=== PATIENT | male | born 1975 | race Caucasian/White ===

== ENCOUNTER 2017-04-15 17:00 | Inpatient (IN) | payer MEDICAID ==
[~2017-04-15] VITALS: Ht 175.3 cm; Wt 81.6 kg
--- NOTE | 2017-04-15 18:08 | Emergency Room Report ---
History of Present Illness General Chief Complaint: Overdose Source: Patient, EMS Present Illness HPI This patient is brought in by EMS. He reports that he took about 6 tablets of Seroquel. He admits that he was trying to commit suicide. He states that he also has been drinking alcohol and would like to detox. He has no other complaints. Allergies: Coded Allergies: No Known Allergies (Unverified , 04/15/17) Patient History Past Medical History: see triage record, psych hx - Bipolar Social History: Reports: alcohol use, Denies: drug use, smoking Reviewed Nursing Documentation: PMH: Agreed, PSxH: Agreed Nursing Documentation-PMH Hx Gastrointestinal Problems: Yes - bowl surgery History Of Psychiatric Problem: Yes Review of Systems All Other Systems: negative except mentioned in HPI Physical Exam Vital Signs Date Time Temp Pulse Resp B/P Pulse Ox O2 Delivery O2 Flow Rate FiO2 04/15/17 16:57 98.1 76 20 120/75 98 Room Air Sp02 EP Interpretation: reviewed, normal General Appearance: no apparent distress, alert, GCS 15, non-toxic, other - + smell of ETOH Head: normocephalic, atraumatic Eyes: bilateral eye PERRL, bilateral eye normal inspection ENT: hearing grossly normal, normal pharynx, no angioedema, normal voice Neck: full range of motion, supple/symm/no masses Respiratory: chest non-tender, lungs clear, normal breath sounds, speaking full sentences Cardiovascular #1: regular rate, rhythm, no edema Gastrointestinal: normal bowel sounds, non tender, soft, non-distended, no guarding, no rebound Rectal: deferred Musculoskeletal: back normal, normal range of motion, non-tender Neurologic: alert, responsive, motor strength/tone normal, sensory intact, speech normal Psychiatric: memory normal, other - Suicidal ideation Skin: normal color, no rash, warm/dry, well hydrated Medical Decision Making Diagnostic Impression: Primary Impression: Suicide attempt Additional Impressions: Alcohol abuse Deliberate medication overdose ER Course Patient presents for a deliberate medication overdose. He states he took about 6 cervical. He states that he was attempting to end his life. He states he also has a long history of alcohol abuse. He would like to undergo detoxification. He has no other complaints. Labs Test 04/15/17 17:35 04/15/17 18:00 White Blood Count 4.9 K/UL (4.8-10.8) Red Blood Count 4.54 M/UL (4.70-6.10) Hemoglobin 15.2 G/DL (14.2-18.0) Hematocrit 43.1 % (42.0-52.0) Mean Corpuscular Volume 95 FL (80-99) Mean Corpuscular Hemoglobin 33.5 PG (27.0-31.0) Mean Corpuscular Hemoglobin Concent 35.2 G/DL (32.0-36.0) Red Cell Distribution Width 14.3 % (11.6-14.8) Platelet Count 249 K/UL (150-450) Mean Platelet Volume 5.4 FL (6.5-10.1) Neutrophils (%) (Auto) % (45.0-75.0) Lymphocytes (%) (Auto) % (20.0-45.0) Monocytes (%) (Auto) % (1.0-10.0) Eosinophils (%) (Auto) % (0.0-3.0) Basophils (%) (Auto) % (0.0-2.0) Differential Total Cells Counted 100 Neutrophils % (Manual) 41 % (45-75) Lymphocytes % (Manual) 51 % (20-45) Monocytes % (Manual) 4 % (1-10) Eosinophils % (Manual) 4 % (0-3) Basophils % (Manual) 0 % (0-2) Band Neutrophils 0 % (0-8) Platelet Estimate Adequate Platelet Morphology Normal Red Blood Cell Morphology Normal Sodium Level 143 mEQ/L (135-145) Potassium Level 3.9 mEQ/L (3.4-4.9) Chloride Level 105 mEQ/L (98-107) Carbon Dioxide Level 25 mEQ/L (20-30) Anion Gap 13 (5-15) Blood Urea Nitrogen 8 mg/dL (7-23) Creatinine 0.8 mg/dL (0.7-1.2) Estimat Glomerular Filtration Rate > 60 mL/min (>60) Glucose Level 146 mg/dL (74-106) Calcium Level 8.1 mg/dL (8.6-10.2) Total Bilirubin 0.5 mg/dL (0.0-1.2) Aspartate Amino Transf (AST/SGOT) 32 U/L (5-40) Alanine Aminotransferase (ALT/SGPT) 16 U/L (3-41) Alkaline Phosphatase 144 U/L (40-129) Total Protein 6.3 g/dL (6.6-8.7) Albumin 3.9 g/dL (3.5-5.2) Globulin 2.4 g/dL Albumin/Globulin Ratio 1.6 (1.0-2.7) Thyroid Stimulating Hormone (TSH) 4.200 uIU/mL (0.300-4.500) Salicylates Level < 1 mg/dL (10-30) Acetaminophen Level < 10 ug/mL (10-30) Serum Alcohol 459 mg/dL Urine Color Pale yellow Urine Appearance Clear Urine pH 7 (4.5-8.0) Urine Specific [place] 1.005 (1.005-1.035) Urine Protein Negative (NEGATIVE) Urine Glucose (UA) Negative (NEGATIVE) Urine Ketones Negative (NEGATIVE) Urine Occult Blood Negative (NEGATIVE) Urine Nitrite Negative (NEGATIVE) Urine Bilirubin Negative (NEGATIVE) Urine Urobilinogen 1 MG/DL (0.0-1.0) Urine Leukocyte Esterase Negative (NEGATIVE) Urine Opiates Screen Negative (NEGATIVE) Urine Barbiturates Screen Negative (NEGATIVE) Phencyclidine (PCP) Screen Negative (NEGATIVE) Urine Amphetamines Screen Negative (NEGATIVE) Urine Benzodiazepines Screen Negative (NEGATIVE) Urine Cocaine Screen Negative (NEGATIVE) Urine Marijuana (THC) Screen Negative (NEGATIVE) EKG Diagnostic Results Rate: normal Rhythm: NSR ST Segments: no acute changes Rhythm Strip Diag. Results EP Interpretation: yes Rate: 90's Rhythm: NSR, no PVC's, no ectopy Last Vital Signs Date Time Temp Pulse Resp B/P Pulse Ox O2 Delivery O2 Flow Rate FiO2 04/15/17 16:57 98.1 76 20 120/75 98 Room Air Disposition: ADMITTED INPATIENT Condition: Stable Referrals: NOT CHOSEN KRISTAL/,REFERRING (PCP) RAQUEL ALMENDAREZ D.O. Apr 15, 2017 18:08
[2017-04-15 18:12] VITALS: BP 113/74
[2017-04-15 18:21] LABS: APPEARANCE,URINE CLEAR; KETONES,URINE NEGATIVE (NEGATIVE); LEUKOCYTE ESTERASE ,URINE NEGATIVE (NEGATIVE); NITRITE,URINE NEGATIVE (NEGATIVE); PH,URINE 7 (4.5-8.0); PROTEIN,URINE NEGATIVE (NEGATIVE); UROBILINOGEN,URINE 1 MG/DL (0.0-1.0)
[2017-04-15 18:21] LABS: MEAN CORPUSCULAR HEMOGLOBIN 33.5 PG (27.0-31.0); MEAN CORPUSCULAR HGB CONC 35.2 G/DL (32.0-36.0); MEAN CORPUSCULAR VOLUME 95 FL (80-99); MEAN PLATELET VOLUME 5.4 FL (6.5-10.1); PLATELET COUNT 249 K/UL (150-450); RED BLOOD COUNT 4.54 M/UL (4.70-6.10); RED CELL DISTRIBUTION WIDTH 14.3 % (11.6-14.8); WHITE BLOOD COUNT 4.9 K/UL (4.8-10.8)
[2017-04-15 18:33] LABS: ACETAMINOPHEN < 10 ug/mL (10-30); ALANINE AMINOTRANSFERASE 16 U/L (3-41); ALBUMIN/GLOBULIN RATIO 1.6 (1.0-2.7); ANION GAP 13 (5-15); ASPARTATE AMINO TRANSFERASE 32 U/L (5-40); CALCIUM 8.1 mg/dL (8.6-10.2); CARBON DIOXIDE 25 mEQ/L (20-30); CHLORIDE 105 mEQ/L (98-107); CREATININE 0.8 mg/dL (0.7-1.2); GLOMERULAR FILTRATION RATE > 60 mL/min (>60); HEMOLYSIS 9; POTASSIUM 3.9 mEQ/L (3.4-4.9); SODIUM 143 mEQ/L (135-145); TOTAL PROTEIN 6.3 g/dL (6.6-8.7)
[2017-04-15 18:50] LABS: ALCOHOL 459 mg/dL
[2017-04-15 19:33] LABS: EOSINOPHILS % (MANUAL) 4 % (0-3); LYMPHOCYTES % (MANUAL) 51 % (20-45); NEUTROPHILS % (MANUAL) 41 % (45-75); TOTAL CELLS COUNTED 100
[2017-04-15 19:34] LABS: BAND NEUTROPHILS % (MANUAL) 0 % (0-8); BASOPHILS % (MANUAL) 0 % (0-2); PLATELET ESTIMATE ADEQUATE; PLATELET MORPHOLOGY NORMAL
[2017-04-15 20:20] VITALS: BP 119/72
[2017-04-15] MEDS ORDERED: PROZAC10 MG ORAL (20:46)
[2017-04-15] MEDS ORDERED: LATUDA20 MG PO (20:46)
[2017-04-15 21:40] VITALS: BP 126/76
[2017-04-15] MEDS ORDERED: LATUDA40 MG PO (21:50)
[2017-04-15] MEDS ORDERED: VISTARIL50 MG ORAL (21:50)
[2017-04-15] MEDS ORDERED: PROZAC40 MG ORAL (21:50)
[2017-04-15] MEDS ORDERED: SEROQUEL100 MG ORAL (21:50)
[2017-04-15] MEDS: Morphine Sulfate 2mg/ml Inj IVP PRN (22:47)
[2017-04-16] VITALS (7 sets, daily range): BP systolic 118–149; BP diastolic 70–89
[2017-04-16] MEDS: Morphine Sulfate 2mg/ml Inj IVP PRN ×5 (01:59→20:08)
[2017-04-16 07:35] LABS: BASOPHILS % (AUTO) 1.1 % (0.0-2.0); EOSINOPHILS % (AUTO) 2.2 % (0.0-3.0); LYMPHOCYTES % (AUTO) 43.8 % (20.0-45.0); MEAN CORPUSCULAR HEMOGLOBIN 32.6 PG (27.0-31.0); MEAN CORPUSCULAR HGB CONC 33.9 G/DL (32.0-36.0); MEAN CORPUSCULAR VOLUME 96 FL (80-99); MEAN PLATELET VOLUME 5.3 FL (6.5-10.1); MONOCYTES % (AUTO) 6.2 % (1.0-10.0); NEUTROPHILS % (AUTO) 46.7 % (45.0-75.0); PLATELET COUNT 262 K/UL (150-450); RED BLOOD COUNT 4.59 M/UL (4.70-6.10); RED CELL DISTRIBUTION WIDTH 13.8 % (11.6-14.8); WHITE BLOOD COUNT 5.6 K/UL (4.8-10.8)
[2017-04-16 08:03] LABS: ANION GAP 13 (5-15); CALCIUM 8.1 mg/dL (8.6-10.2); CARBON DIOXIDE 26 mEQ/L (20-30); CHLORIDE 101 mEQ/L (98-107); CREATININE 0.8 mg/dL (0.7-1.2); GLOMERULAR FILTRATION RATE > 60 mL/min (>60); HEMOLYSIS 9; POTASSIUM 4.5 mEQ/L (3.4-4.9); SODIUM 140 mEQ/L (135-145)
[2017-04-16] MEDS ORDERED: HydrOXYzine 50mg cap ORAL SCH (09:00)
[2017-04-16] MEDS ORDERED: LORazepam Inj 2mg/ml 1ml IV PRN ×3 (10:30→13:30)
[2017-04-16] MEDS ORDERED: [UNRECOGNIZED DRUG - OTHER] IVPB SCH (12:00)
[2017-04-16] MEDS ORDERED: MULTIVITAMIN IVPB SCH (12:00)
[2017-04-16] MEDS ORDERED: FOLIC ACID IVPB SCH (12:00)
[2017-04-16] MEDS ORDERED: THIAMINE HCL IVPB SCH (12:00)
--- NOTE | 2017-04-16 12:30 | Cardiology Report ---
APPROVED REPORT EKG Measurement Heart [id number] Normal sinus rhythm Low voltage QRS Borderline ECG
[2017-04-16] MEDS: MULTIVITAMIN IVPB SCH (15:52)
[2017-04-16] MEDS: THIAMINE HCL IVPB SCH (15:52)
[2017-04-16] MEDS: FOLIC ACID IVPB SCH (15:52)
[2017-04-16] MEDS: [UNRECOGNIZED DRUG - OTHER] IVPB SCH (15:52)
--- NOTE | 2017-04-16 17:43 | History and Physical ---
History of Present Illness General Date patient seen: Apr 16, 2017 Time patient seen: 17:39 Reason for Hospitalization: alcohol withdrawal Present Illness HPI 42 y/o man with heavy etoh abuse for the past year, drinks 1/5th of a 750ml bottle of vodka daily, last drink was 24hrs ago. Pt has lost his employment, marriage, and kids. Denies smoking or other recreational drugs. He drank etoh with seroquel, denies intentional overdose, denies suicidal ideations. Allergies: Coded Allergies: No Known Allergies (Unverified , 04/15/17) Medication History Scheduled Fluoxetine Hcl* (Prozac*), 40 MG ORAL DAILY, (Reported) Hydroxyzine Pamoate* (Vistaril*), 40 MG ORAL TID, (Reported) Lurasidone Hcl (Latuda), 40 MG PO DAILY, (Reported) Scheduled PRN Quetiapine Fumarate* (Seroquel*), 100 MG ORAL for Agitation, (Reported) Discontinued Medications Fluoxetine Hcl* (Prozac*), 10 MG ORAL DAILY, (Reported) Discontinued Reason: Pt stopped taking med Lurasidone Hcl (Latuda), 20 MG PO, (Reported) Discontinued Reason: Pt stopped taking med Patient History History Provided By: Patient Healthcare decision maker Resuscitation status Full Code Advanced Directive on File Family History Family History: Patient reports no known family medical history. Social History Social History: (1) Alcohol abuse Review of Systems ROS Narrative CONSTITUTIONAL: No weight loss, fever, chills, weakness or fatigue. HEENT: Eyes: No visual loss, blurred vision, double vision or yellow sclerae. Ears, Nose, Throat: No hearing loss, sneezing, congestion, runny nose or sore throat. SKIN: No rash or itching. CARDIOVASCULAR: No chest pain, chest pressure or chest discomfort. No palpitations or edema. RESPIRATORY: No shortness of breath, cough or sputum. GASTROINTESTINAL: No anorexia, nausea, vomiting or diarrhea. No abdominal pain or blood. NEUROLOGICAL: +tremors MUSCULOSKELETAL: No muscle, back pain, joint pain or stiffness. HEMATOLOGIC: No anemia, bleeding or bruising. LYMPHATICS: No enlarged nodes. No history of splenectomy. PSYCHIATRIC: No history of depression or anxiety. ENDOCRINOLOGIC: No reports of sweating, cold or heat intolerance. No polyuria or polydipsia. ALLERGIES: No history of asthma, hives, eczema or rhinitis. Physical Exam Physical Exam Narrative General: alert, cooperative, no distress, appears stated age, +tremors Head: normocephalic, without obvious abnormality, atraumatic Eyes: conjunctivae/corneas clear. PERRL, EOM's intact Throat: lips, mucosa, and tongue normal. MMM Neck: supple, symmetrical, trachea midline, and no JVD Lungs: clear to auscultation bilaterally Heart: regular rate and rhythm, S1, S2 normal, no murmur, click, rub or gallop Abdomen: soft, non-tender, non-distended, bowel sounds normal; no masses or organomegaly Extremities: extremities normal, atraumatic, no cyanosis or edema Pulses: 2+ and symmetric Skin: skin color, texture, turgor normal; no rashes or lesions Neurologic: grossly normal, no focal deficits Last 24 Hour Vital Signs Date Time Temp Pulse Resp B/P Pulse Ox O2 Delivery O2 Flow Rate FiO2 04/16/17 16:00 98.1 105 19 125/86 95 Room Air 04/16/17 12:00 98.1 105 19 149/89 94 Room Air 04/16/17 08:00 98.1 92 19 126/75 95 Room Air 04/16/17 04:00 90 04/16/17 04:00 97.3 90 20 120/70 98 Room Air 04/16/17 00:00 90 04/16/17 00:00 97.0 94 20 118/70 98 Room Air 04/15/17 21:40 98.1 92 20 126/76 98 Room Air 04/15/17 21:25 98.1 94 14 119/72 98 Room Air 04/15/17 20:20 98.1 94 14 119/72 98 Room Air 04/15/17 18:12 98.1 95 14 113/74 Room Air 04/15/17 18:12 95 14 Intake and Output 04/15/17 04/16/17 19:00 07:00 Intake Total 600 ml Balance 600 ml Intake Oral 600 ml # Voids 1 4 Laboratory Tests Test 04/15/17 18:00 04/16/17 07:20 Urine Color Pale yellow Urine Appearance Clear Urine pH 7 (4.5-8.0) Urine Specific [place] 1.005 (1.005-1.035) Urine Protein Negative (NEGATIVE) Urine Glucose (UA) Negative (NEGATIVE) Urine Ketones Negative (NEGATIVE) Urine Occult Blood Negative (NEGATIVE) Urine Nitrite Negative (NEGATIVE) Urine Bilirubin Negative (NEGATIVE) Urine Urobilinogen 1 MG/DL (0.0-1.0) H Urine Leukocyte Esterase Negative (NEGATIVE) Urine Opiates Screen Negative (NEGATIVE) Urine Barbiturates Screen Negative (NEGATIVE) Phencyclidine (PCP) Screen Negative (NEGATIVE) Urine Amphetamines Screen Negative (NEGATIVE) Urine Benzodiazepines Screen Negative (NEGATIVE) Urine Cocaine Screen Negative (NEGATIVE) Urine Marijuana (THC) Screen Negative (NEGATIVE) White Blood Count 5.6 K/UL (4.8-10.8) Red Blood Count 4.59 M/UL (4.70-6.10) L Hemoglobin 15.0 G/DL (14.2-18.0) Hematocrit 44.2 % (42.0-52.0) Mean Corpuscular Volume 96 FL (80-99) Mean Corpuscular Hemoglobin 32.6 PG (27.0-31.0) H Mean Corpuscular Hemoglobin Concent 33.9 G/DL (32.0-36.0) Red Cell Distribution Width 13.8 % (11.6-14.8) Platelet Count 262 K/UL (150-450) Mean Platelet Volume 5.3 FL (6.5-10.1) L Neutrophils (%) (Auto) 46.7 % (45.0-75.0) Lymphocytes (%) (Auto) 43.8 % (20.0-45.0) Monocytes (%) (Auto) 6.2 % (1.0-10.0) Eosinophils (%) (Auto) 2.2 % (0.0-3.0) Basophils (%) (Auto) 1.1 % (0.0-2.0) Sodium Level 140 mEQ/L (135-145) Potassium Level 4.5 mEQ/L (3.4-4.9) Chloride Level 101 mEQ/L (98-107) Carbon Dioxide Level 26 mEQ/L (20-30) Anion Gap 13 (5-15) Blood Urea Nitrogen 11 mg/dL (7-23) Creatinine 0.8 mg/dL (0.7-1.2) Estimat Glomerular Filtration Rate > 60 mL/min (>60) Glucose Level 156 mg/dL (74-106) H Calcium Level 8.1 mg/dL (8.6-10.2) L Height (Feet): 5 Height (Inches): 9.00 Weight (Pounds): 180 Medications Current Medications Medications (Trade) Dose Ordered Sig/Jyothi Route PRN Reason Start Time Stop Time Status Last Admin Dose Admin Fluoxetine HCl (PROzac) 40 mg DAILY ORAL 04/17/17 09:00 05/17/17 08:59 Hydroxyzine HCl (Vistaril) 40 mg TID ORAL 04/16/17 13:00 05/16/17 12:59 04/16/17 15:46 Lorazepam (Ativan 2mg/ml 1ml) 2 mg Q3H PRN IV For Seizures 04/16/17 13:30 04/23/17 13:29 Lorazepam (Ativan 2mg/ml 1ml) 2 mg Q3H PRN IV For Anxiety 04/16/17 13:54 04/23/17 13:53 Morphine Sulfate (Morphine Sulfate) 2 mg Q3H PRN IVP Severe Pain (Pain Scale 7-10) 04/16/17 13:00 04/23/17 12:59 04/16/17 13:37 Nicotine (Nicoderm) 1 patch Q24H TDERMAL 04/17/17 09:00 05/17/17 08:59 Non-Formulary Medication (Non-Formulary Med) 1 ea DAILY ORAL 04/17/17 09:00 05/17/17 08:59 UNV Ondansetron HCl (Zofran) 4 mg Q4H PRN ORAL Nausea & Vomiting 04/16/17 13:00 05/16/17 12:59 Sodium Chloride 1,000 ml @ 125 mls/hr Q8H IV 04/16/17 13:00 05/16/17 12:59 Thiamine HCl/ Folic Acid/ Multivitamins/ Sodium Chloride (Vitamin B1/ Folvite/M.v.i.-12/ Sodium Chloride 1000ml bag) 1,011.2 ml @ 125 mls/ hr Q24H IVPB 04/16/17 13:30 05/16/17 13:29 04/16/17 15:52 Assessment/Plan Problem List: (1) Alcohol withdrawal Assessment & Plan: Admit to inpatient IV fluids, banana bag Ativan prn for withdrawal symptoms Start librium Psychiatry consult given question of intentional overdose ICD Codes: F10.239 - Alcohol dependence with withdrawal, unspecified SNOMED: 182387221 JEN BHARDWAJ Apr 16, 2017 17:43
[2017-04-16] MEDS ORDERED: chlordiazePOXIDE 25mg Cap ORAL SCH (18:00)
[2017-04-16] MEDS: LORazepam Inj 2mg/ml 1ml IV PRN (18:34)
[2017-04-17] MEDS: LORazepam Inj 2mg/ml 1ml IV PRN ×2 (01:06→23:03)
[2017-04-17 03:30] VITALS: BP 129/81
[2017-04-17] MEDS: Morphine Sulfate 2mg/ml Inj IVP PRN ×5 (06:56→23:03)
[2017-04-17 08:00] VITALS: BP 123/76
[2017-04-17] MEDS: MULTIVITAMIN IVPB SCH (13:42)
[2017-04-17] MEDS: THIAMINE HCL IVPB SCH (13:42)
[2017-04-17] MEDS: FOLIC ACID IVPB SCH (13:42)
[2017-04-17] MEDS: [UNRECOGNIZED DRUG - OTHER] IVPB SCH (13:42)
[2017-04-17 14:09] VITALS: BP 130/82
--- NOTE | 2017-04-17 14:57 | Consultation ---
History of Present Illness General Chief Complaint: Overdose Present Illness HPI 42 yo male with hx of alcohol dependance who has overdosed on seroquel and alcohol. the pt stated that he has "too much stress" the pt took more seroquel than usual since he wanted to sleep. the pt stated that for the past 20 years he has tried to quite however he relapses after every treatment. the pt recently was started on psychotropic meds. the pt is awaiting placement in a rehab. the pt denies si, he has future oriented thought process. " iwould never hurt my mom and daughter" Allergies: Coded Allergies: No Known Allergies (Unverified , 04/15/17) Medication History Scheduled Fluoxetine Hcl* (Prozac*), 40 MG ORAL DAILY, (Reported) Hydroxyzine Pamoate* (Vistaril*), 40 MG ORAL TID, (Reported) Lurasidone Hcl (Latuda), 40 MG PO DAILY, (Reported) Scheduled PRN Quetiapine Fumarate* (Seroquel*), 100 MG ORAL for Agitation, (Reported) Discontinued Medications Fluoxetine Hcl* (Prozac*), 10 MG ORAL DAILY, (Reported) Discontinued Reason: Pt stopped taking med Lurasidone Hcl (Latuda), 20 MG PO, (Reported) Discontinued Reason: Pt stopped taking med Patient History History Provided By: Patient, Medical Record, PMD Healthcare decision maker Resuscitation status Full Code Advanced Directive on File Past Medical/Surgical History Past Medical/Surgical History: (1) Alcohol abuse (2) Suicide attempt (3) Deliberate medication overdose (4) Alcohol withdrawal Review of Systems Psychiatric: Reports: anxiety, depressed feelings, emotional problems Physical Exam General Appearance: no apparent distress, alert, thin Neurologic: alert, oriented x 3, responsive, normal mood/affect Last 24 Hour Vital Signs Date Time Temp Pulse Resp B/P Pulse Ox O2 Delivery O2 Flow Rate FiO2 04/17/17 14:09 98.2 92 18 130/82 97 Room Air 04/17/17 11:30 97.5 04/17/17 08:00 97.5 83 17 123/76 100 Room Air 04/17/17 03:30 97.7 90 21 129/81 96 Room Air 04/16/17 23:29 98.1 93 21 134/84 Room Air 04/16/17 20:21 99.1 92 21 126/79 Room Air 04/16/17 16:00 98.1 105 19 125/86 95 Room Air Intake and Output 04/16/17 04/17/17 19:00 07:00 Intake Total 975 ml 1386.2 ml Balance 975 ml 1386.2 ml Intake Oral 600 ml IV Total 375 ml 1386.2 ml # Voids 3 1 # Bowel Movements 2 Height (Feet): 5 Height (Inches): 9.00 Weight (Pounds): 180 Medications Current Medications Medications (Trade) Dose Ordered Sig/Jyothi Route PRN Reason Start Time Stop Time Status Last Admin Dose Admin Fluoxetine HCl (PROzac) 40 mg DAILY ORAL 04/17/17 09:00 05/17/17 08:59 04/17/17 09:26 Hydroxyzine HCl (Vistaril) 40 mg TID ORAL 04/16/17 13:00 05/16/17 12:59 04/17/17 13:59 Lorazepam (Ativan 2mg/ml 1ml) 2 mg Q3H PRN IV For Seizures 04/16/17 13:30 04/23/17 13:29 Lorazepam (Ativan 2mg/ml 1ml) 2 mg Q3H PRN IV For Anxiety 04/16/17 13:54 04/23/17 13:53 04/17/17 01:06 Morphine Sulfate (Morphine Sulfate) 2 mg Q3H PRN IVP Severe Pain (Pain Scale 7-10) 04/16/17 13:00 04/23/17 12:59 04/17/17 14:03 Nicotine (Nicoderm) 1 patch Q24H TDERMAL 04/17/17 09:00 05/17/17 08:59 04/17/17 11:01 Non-Formulary Medication (Non-Formulary Med) 1 ea DAILY ORAL 04/17/17 09:00 05/17/17 08:59 UNV Ondansetron HCl (Zofran) 4 mg Q4H PRN ORAL Nausea & Vomiting 04/16/17 13:00 05/16/17 12:59 Sodium Chloride 1,000 ml @ 125 mls/hr Q8H IV 04/16/17 13:00 05/16/17 12:59 04/17/17 01:06 Thiamine HCl/ Folic Acid/ Multivitamins/ Sodium Chloride (Vitamin B1/ Folvite/M.v.i.-12/ Sodium Chloride 1000ml bag) 1,011.2 ml @ 125 mls/ hr Q24H IVPB 04/16/17 13:30 05/16/17 13:29 04/17/17 13:42 Assessment/Plan Status: stable, progressing Assessment/Plan mdd, alcohol dependence -prozac 40mg -seroquel 100mg q -no 5150 -dc doyle Damaris Anderson M.D. Apr 17, 2017 14:57
[2017-04-17 16:18] VITALS: BP 128/79
--- NOTE | 2017-04-17 18:42 | General Progress Note ---
Assessment/Plan Problem List: (1) Alcohol withdrawal Assessment & Plan: Cont IV fluids, banana bag Ativan prn for withdrawal symptoms Seroquel, prozaac Psychiatry consult appreciated, cleared for dc home ICD Codes: F10.239 - Alcohol dependence with withdrawal, unspecified SNOMED: [id number] Subjective Date patient seen: Apr 17, 2017 Time patient seen: 18:41 ROS Limited/Unobtainable: No Allergies: Coded Allergies: No Known Allergies (Unverified , 04/15/17) Subjective feels better, seen by psych, pain controlled, withdrawal improved Objective Last 24 Hour Vital Signs Date Time Temp Pulse Resp B/P Pulse Ox O2 Delivery O2 Flow Rate FiO2 04/17/17 16:18 98.7 87 20 128/79 97 Room Air 04/17/17 14:09 98.2 92 18 130/82 97 Room Air 04/17/17 11:30 97.5 04/17/17 08:00 97.5 83 17 123/76 100 Room Air 04/17/17 03:30 97.7 90 21 129/81 96 Room Air 04/16/17 23:29 98.1 93 21 134/84 Room Air 04/16/17 20:21 99.1 92 21 126/79 Room Air Intake and Output 04/16/17 04/17/17 19:00 07:00 Intake Total 975 ml 1386.2 ml Balance 975 ml 1386.2 ml Intake Oral 600 ml IV Total 375 ml 1386.2 ml # Voids 3 1 # Bowel Movements 2 Height (Feet): 5 Height (Inches): 9.00 Weight (Pounds): 180 Objective General: alert, cooperative, no distress, appears stated age Head: normocephalic, without obvious abnormality, atraumatic Eyes: conjunctivae/corneas clear. PERRL, EOM's intact Throat: lips, mucosa, and tongue normal. MMM Neck: supple, symmetrical, trachea midline, and no JVD Lungs: clear to auscultation bilaterally Heart: regular rate and rhythm, S1, S2 normal, no murmur, click, rub or gallop Abdomen: soft, non-tender, non-distended, bowel sounds normal; no masses or organomegaly Extremities: mildly tremulous Pulses: 2+ and symmetric Skin: skin color, texture, turgor normal; no rashes or lesions Neurologic: grossly normal, no focal deficits JEN BHARDWAJ Apr 17, 2017 18:42
[2017-04-17 20:00] VITALS: BP 127/72
[2017-04-18] VITALS: BP 135/84
[2017-04-18] MEDS: LORazepam Inj 2mg/ml 1ml IV PRN (03:35)
[2017-04-18] MEDS: Morphine Sulfate 2mg/ml Inj IVP PRN ×2 (03:36→08:46)
[2017-04-18 04:00] VITALS: BP 131/79
[2017-04-18 08:20] VITALS: BP 125/73
[2017-04-18 11:41] VITALS: BP 135/83
[2017-04-18] MEDS ORDERED: Norco 5mg/325mg tab ORAL PRN (12:00)
[2017-04-18] MEDS ORDERED: Norco 10mg/325mg tab ORAL PRN (12:00)
--- NOTE | 2017-04-18 18:23 | General Progress Note ---
Assessment/Plan Status: doing well, stable Assessment/Plan alcohol ddependence. MDD cont Prozac and Seroquel Subjective Constitutional: Reports: malaise, weakness Neurologic/Psychiatric: Reports: anxiety, depressed, emotional problems Allergies: Coded Allergies: No Known Allergies (Unverified , 04/15/17) Objective Last 24 Hour Vital Signs Date Time Temp Pulse Resp B/P Pulse Ox O2 Delivery O2 Flow Rate FiO2 04/18/17 11:41 97.2 84 20 135/83 99 Room Air 04/18/17 08:20 98.0 90 20 125/73 96 Room Air 04/18/17 04:06 97.9 04/18/17 04:00 98.5 85 18 131/79 100 Room Air 04/18/17 00:00 97.9 82 20 135/84 96 Room Air 04/17/17 20:00 98.4 83 18 127/72 96 Room Air Intake and Output 04/17/17 04/18/17 19:00 07:00 Intake Total 1235 ml 1500 ml Balance 1235 ml 1500 ml Intake Oral 360 ml IV Total 875 ml 1500 ml # Voids 2 4 Height (Feet): 5 Height (Inches): 9.00 Weight (Pounds): 180 General Appearance: no apparent distress, alert, thin Neurologic: alert, oriented x 3, responsive, depressed affect Damaris Anderson M.D. Apr 18, 2017 18:23
--- NOTE | 2017-05-06 14:41 | Discharge Summary ---
Discharge Summary Hospital Course Date of Admission Apr 15, 2017 at 18:38 Date of Discharge Apr 18, 2017 at 14:05 Admitting Diagnosis Overdose, ETOH Detox Reason for Hospitalization: alcohol withdrawal HPI Shamar Sylvester is a 42 year old male who was admitted on Apr 15, 2017 at 18:38 for Overdose,Etoh Detox 42 y/o man with history of heavy ETOH abuse for the past year, drinks about 1/ 5th of a 750ml bottle of vodka daily. Last drink was 24hrs ago. Pt had lost his employment, marriage, and children. Patient denies smoking or other recreational drugs. Patient admitted drinking alcohol with 6 pills of Seroquel, d He denied intentional overdose, denied suicidal ideations. Laboratory work was essentially negative Serum [id number] urine tox screen negative patient was admitted for further management Consultations dr Anderson -psychiatrist Hospital Course patient was admitted started on IV fluids with banana bag started on Librium and Ativan to prevent withdrawal symptoms psych eval was requested psychiatrist seen and evaluated the patient diagnosed him with MDD ( major depressive disorder) patient was started on Prozac and Seroquel No need for hold 5150 as per psychiatrist psychiatrist cleared the patient for discharge patient was discharged home certified alcohol drug counselor on abstinence from ETOH advised to sign up and follow up with AA meetings Discharge Medications Continued Medications: Fluoxetine Hcl* (Prozac*) 40 Mg Capsule 40 MG ORAL DAILY, CAP Quetiapine Fumarate* (Seroquel*) 100 Mg Tablet 100 MG ORAL PRN for Agitation, TAB 0 Refills Discontinued Medications: Hydroxyzine Pamoate* (Vistaril*) 50 Mg Capsule 40 MG ORAL TID, #20 TAB 0 Refills Lurasidone Hcl (Latuda) 40 Mg Tablet 40 MG PO DAILY, TAB Discharge Condition Upon Discharge: stable Discharge Disposition Patient was discharged to Home (01) Discharge Diagnoses: (1) Alcohol withdrawal (2) Alcohol dependence (3) Major depressive disorder Discharge Instructions Discharge Instructions Special Instructions I have been assigned to complete a D/C Summary on this account. I was not involved in the patient management Rena Trent NP ([place]) May 06, 2017 14:41
== END 2017-04-18 14:05 | disposition home or self-care (01) | DRG 775 ==
LOC: EDBD 17:00 → EMR 17:55 → 2E 18:38 → EDBEDREQ 19:31 → 4W 04-16 12:14
DX: F10.239 Alcohol dependence with withdrawal, unspecified (principal); F32.9 Major depressive disorder, single episode, unspecified
CPT/HCPCS: 36415; 80048; 80053; 80300; 80329; 81003; 84443; 85007; 85025; 87081; 93005